=== PATIENT | male | born 1960 | race Caucasian/White ===

== ENCOUNTER 2025-07-09 13:25 | Outpatient (CLI) | payer BC, OTHER ==
--- NOTE | 2025-07-09 15:44 | RADIOLOGY REPORT ---
EXAM: CT CT LOWER EXTREMITY INDICATION: PRIMARY OSTEOARTHRITIS, LEFT KNEE TECHNIQUE: Axial images of left lower extremity from the hips to the ankle have been obtained along w ith coronal and sagittal reformatted images. All CT scans at this facility use dose modulation, itera tive reconstruction, and/or weight based dosing when appropriate to reduce radiation dose to as low a s reasonably achievable. COMPARISON: None FINDINGS: BONES: No CT evidence of an acute fracture or aggressive osseous lesion. severe anterior medial weigh t-bearing compartment joint space loss with a [id number] contact MUSCLES: No abnormal attenuation. JOINT SPACES: Small knee joint effusion TENDONS/LIGAMENTS: Intact. OTHER: None. IMPRESSION: 1. Successful CT surgical planning protocol. 2. Small knee joint effusion.
== END 2025-07-09 23:59 | disposition home or self-care (01) ==
LOC: RAD 13:25
PROVIDERS: ATTEND Orthopaedic Surgery
DX: M25.462 Effusion, left knee (principal); M17.12 Unilateral primary osteoarthritis, left knee
CPT/HCPCS: 73700

== ENCOUNTER 2025-08-06 08:42 | Inpatient (IN) | payer OTHER, BC ==
[2025-07-28 14:53] LABS: MEAN PLATELET VOLUME 8.4 FL (7.4-10.4); PRE OP HEMATOCRIT 48.3 % (42.0-52.0); PRE OP HEMOGLOBIN 16.3 g/dL (14.0-17.9); PRE OP PLATELET COUNT 186 X10'3 (140-440); PRE OP WHITE BLOOD COUNT 8.8 10'3 (4.8-10.8); RED CELL DISTRIBUTION WIDTH 13.2 % (11.5-14.5)
--- NOTE | 2025-07-28 15:07 | ELECTROCARDIOGRAPH REPORT ---
[facility] Test Date: 2025-07-28 Test Time: 15:05:34 Pat Name: STAR BROOKS Department: PRE/OP CARDIOLOGY Patient ID: [facility]-[id number] Room: Gender: M Store Operations Manager: SIMI : 1960 Requested By: VERÓNICA LOUIS Order Number: [id number] Reading MD: Dr. TIANA Perla Measurements Intervals [place] Rate: 51 P: 50 [place]: 128 QRS: 38 QRSD: 113 T: 43 QT: 468 QTc: 432 Interpretive Statements Sinus bradycardia Incomplete right bundle branch block Electronically Signed On 07-28-2025 18:47:[address] TIANA Perla Please click the below link to view image of tracing.
[2025-07-28 15:09] LABS: CREATININE 0.88 MG/DL (0.60-1.10); PRE OP ALT 8 U/L (30-65); PRE OP ANION GAP 11 (8-16); PRE OP AST 21 U/L (10-37); PRE OP BILIRUB, TOTAL 0.9 MG/DL (0.0-1.0); PRE OP GLUCOSE 106 MG/DL (70-104); PRE OP POTASSIUM 3.8 MMOL/L (3.4-5.1); PRE OP SODIUM 139 MMOL/L (135-145); TOTAL CARBON DIOXIDE 24.7 MMOL/L (24-32); eGFR 87 ML/MIN
[2025-08-06] VITALS (23 sets, daily range): BP systolic 98–154; BP diastolic 62–81; PULSE 39–56; RESP 8–16; TEMP 96.7–97.6; O2SAT 94–100
[~2025-08-06] VITALS: Ht 177.8 cm; Wt 95.3 kg
[2025-08-06] MEDS: ceFAZolin 2gm/dext,iso 50mL 50 ML IV ONE (05:30)
[2025-08-06] MEDS: tranexamic acid 1gm/0.7% sal. 100 ML IV ONE (05:30)
[2025-08-06] MEDS: ROPIVAcaine inj 200 MG, epiNEPHrine inj 0.6 MG, morphine 10mg/ml inj. 5 MG in normal sa... IU ONE (07:05)
[~2025-08-06 08:42] MED LIST: IBUP-1986 PO; TRAZ-251 PO; vancomycin 1,000mg inj ONE
[2025-08-06] MEDS: ringers solution, lacted 1,000 ML IV SCH ×2 (09:28→15:08)
[2025-08-06] MEDS: VANCOMYCIN/H2O 1.5g/300mL PB 300 ML IV ONE (09:29)
[2025-08-06] MEDS ORDERED: vancomycin 1,000mg inj ONE (11:06)
[2025-08-06] MEDS ORDERED: tetracaine 1% (10mg/ml) pres. free inj. ONE (11:18)
[2025-08-06] MEDS ORDERED: MIDAZolam 1mg/ml 10ml vial ONE (11:19)
[2025-08-06] MEDS ORDERED: fentaNYL/PF 50MCG/1 ML 2ML syringe ONE (11:19)
[2025-08-06] MEDS ORDERED: ROPIVAcaine 0.2% (10 MG/5 ML) BOLUS INJECTION ADDCANAL PRN (12:30)
[2025-08-06] MEDS ORDERED: hydrALAZINE 20mg/ml inj. IV PRN (12:30)
[2025-08-06] MEDS ORDERED: labetalol 20mg/4ml (5mg/ml) syringe IV PRN (12:30)
[2025-08-06] MEDS ORDERED: ondansetron/PF 4mg/2ml inj IV PRN ×2 (12:30→14:20)
[2025-08-06] MEDS ORDERED: HYDROmorphone/PF 0.2 MG/ML SYRINGE IV PRN ×2 (12:30)
[2025-08-06] MEDS ORDERED: ROPIVAcaine 0.5% (5mg/ml) 30ml vial ONE (14:17)
[2025-08-06] MEDS ORDERED: propofol inj 20 ML IV ONE ×2 (14:17)
[2025-08-06] MEDS ORDERED: magnesium hydroxide 30ml (MOM) UD suspension PO PRN (14:20)
[2025-08-06] MEDS ORDERED: PCA WASTE DOCUMENTATION 1 MG ML MC SCH (14:20)
[2025-08-06] MEDS ORDERED: HYDROmorphone inj. 0.5 MG/0.5 ML DISP.SYRIN IV PRN (14:20)
[2025-08-06] MEDS ORDERED: bisacodyl 10mg suppository rectal RC PRN (14:20)
[2025-08-06] MEDS: acetaminophen 1,000mg/100ml IV 100 ML IV ONE (14:32)
--- NOTE | 2025-08-06 14:32 | OPERATIVE REPORT ---
Operative Report Providers to ~ Date of Procedure: Aug 06, 2025 Pre-Operative Diagnosis: Severe degenerative joint disease left knee Post-Operative Diagnosis SAME as PRE-Op Procedure Performed Left total knee arthroplasty Press-Fit Surgeon: Elisa Eckert MD Party Host/Hostess Bruno Wilder MD Anesthesiologist: Mathieu Calderon Type of Anesthesia: Regional (I pack block adductor canal block), Spinal Findings: Severe grade 4 degenerative changes tricompartmental left knee Complications None Prosthetics\Implants used: Implants used to pew Press-Fit attune total joint knee system size seven left femur cementless size eight tibial base plate cementless size 38 patella Press- Fit size 7 mm tibial insert fixed bearing medial stabilize Estimated Blood Loss: 250 mL Specimen Removed: Degenerative bone meniscal and cruciate tissue Description of Procedure: Patient was taken to the operating room after I had obtained informed consent signed his left knee he was given prophylactic intravenous antibiotics once in the operating room he was given a spinal anesthetic and placed in the operating room table in the supine position his right leg was placed in an SCD device left leg was placed in a well-padded upper thigh tourniquet and then prepped and draped in usual sterile orthopaedic fashion surgical time-out was taken per protocol and the case was begun. Esmarch was used for exsanguination. And I M P knee stabilizing system was used. Anterior incision measured approximately 7-8 inches medial parapatellar approach was accomplished without difficulty the patella was inverted and found to have extensive osteophytes and areas of grade 4 degenerative changes and osteotomy using freehand technique was used and a patellar protector was used to protect the patella which was now subluxed laterally to expose the distal femur. The patient match cutting block was used on the distal femoral and proximal tibial cuts these were accomplished without difficulty protecting neurovascular structures with retractors at all times. Flexion-extension gaps were found to be equal and 7 mm four in one cutting block of the distal femur was now used including the chamfer accessory cut trial components fit blade snugly and a 7 mm liner gave us a stable knee throughout a full range of motion both in flexion- extension. Definitive implants were impacted into place after the tibia had been prepared for the keel. Good Press-Fit and solid bone was encountered. 7 mm medial congruent liner was placed in the knee without difficulty in the knee was found to be stable throughout a range of motion of the patella was Press-Fit into the under the surface of the patella and this tracked centrally without no thumbs technique throughout a full range of motion. Tourniquet was released hemostasis was controlled with electrocautery during this in the throughout the case. Proximally 2 L of antibiotic impregnated normal saline was used for pulsatile irrigation and 1 L of antiseptic solution was used for irrigation. Vistaseal was used to supplement hemostasis. No drains were placed. Closure was accomplished with 2. Ethibond interrupted subcutaneous tissue was closed with 2-0 Vicryl and the skin was closed with skin elsy and sealed with Dermabond skin glue sterile dressings were placed over this knee and held in position with op-site. Patient had good distal pulses and capillary refill to the foot. Patient was now placed in the hands of the anesthesiologist for the adductor canal block in the on IPAP block. He was then transferred to the recovery room in stable condition there were no apparent pe rioperative complications Counts repoted as correct: Yes VERÓNICA ECKERT MD Aug 06, 2025 14:32
[2025-08-06] MEDS ORDERED: morphine 4 MG/ML inj SYRINge IV PRN (14:33)
[2025-08-06] MEDS: morphine 4 MG/ML inj SYRINge IV PRN (14:36)
[2025-08-06] MEDS: ROPIVAcaine 0.2%/PF PUMP/bolus 545 ML ADDCANAL SCH (15:08)
--- NOTE | 2025-08-06 15:11 | RADIOLOGY REPORT ---
EXAM: DI KNEE LIMITED (AP/LAT) CLINICAL INDICATION: Postop LT. KNEE TECHNIQUE: DI KNEE LIMITED (AP/LAT) Comparison: CT CT LOWER EXTREMITY on DOS: 07/09/25 FINDINGS/IMPRESSION: Right Total knee arthroplasty.
[2025-08-06] MEDS ORDERED: ceFAZolin/D5W- 1GM premix 50 ML IV SCH (16:00)
[2025-08-06] MEDS: oxyCODONE IR 5mg (immed. release) tablet PO PRN ×2 (16:16→21:19)
[2025-08-06] MEDS: potassium Cl 20mEq in NS 1,000 ML IV SCH (16:46)
[2025-08-06] MEDS: tranexamic acid inj. 950 MG in normal saline 100ml IV soln 90.5 ML IV ONE (18:59)
[2025-08-06] MEDS ORDERED: ibuprofen tablet 400 MG TABLET PO PRN (19:05)
[2025-08-06] MEDS: ceFAZolin/D5W- 1GM premix 50 ML IV SCH (21:18)
[2025-08-06] MEDS: vancomycin/NS 1 GM ADD-VANTAGE 250 ML IV SCH (22:00)
[2025-08-07 02:00] VITALS: BP 142/71; PULSE 65; RESP 18; TEMP 98.1; O2SAT 99
[2025-08-07 06:00] VITALS: BP 137/85; PULSE 63; RESP 16; TEMP 97.9; O2SAT 98
[2025-08-07 10:00] VITALS: BP 135/80; PULSE 85; RESP 18; TEMP 97.8; O2SAT 99
[2025-08-07] MEDS ORDERED: oxyCODONE/APAP 5-325mg tablet PO PRN (13:35)
[2025-08-07 14:05] VITALS: RESP 16
--- NOTE | 2025-08-13 07:53 | DISCHARGE SUMMARY ---
Discharge Summary Ortho CC ~ Discharge Summary Discharge Date: Aug 07, 2025 Admission Diagnosis: Severe degenerative joint disease left knee Discharge Diagnosis\Comment: The same Operations\Procedures Left total knee arthroplasty Press-Fit Consultants: None Complications: None Condition on DC: Stable Discharge Summary: Patient was admitted on August 07 2025 for a left total knee arthroplasty. The surgery went as scheduled and without complications. Postoperatively this patient did quite well and by the 1st postoperative day he had passed his physical therapy treatment and was cleared to be discharged to home. His pain medicine was well controlled. Once he met discharge to home he was discharged and has follow up appointments in his set up with home care for wound care and home physical therapy. He has a follow up appointment to see me within the next two weeks Total Time Spent on D/C: Up to 30 Minutes Medications Home Meds: Home Medications Active Reported Trazodone HCl 50 Mg Tablet 1 Tab PO HS PRN 30 Days Ibuprofen 800 Mg Tablet 1 Tab PO BID PRN 30 Days Supervising Physician Supervising Physician: VERÓNICA Lin MD Aug 13, 2025 07:53
== END 2025-08-07 17:13 | disposition home health service (06) | DRG 470 ==
LOC: PAS IN 08:42 → ORTHO 4S 15:56
PROVIDERS: ADMIT Orthopaedic Surgery; ATTEND Orthopaedic Surgery
PROC: 3E0T3BZ Introduction of Anesthetic Agent into Peripheral Nerves and Plexi, Percutaneous Approach (ICD-10-PCS; 2025-08-06)
PROC: 0SRD0JA Replacement of Left Knee Joint with Synthetic Substitute, Uncemented, Open Approach (ICD-10-PCS; principal; 2025-08-06 11:11)
DX: M17.12 Unilateral primary osteoarthritis, left knee (principal)
CPT/HCPCS: 36415; 73560; 80053; 82948; 85025; 87081; 93005; 97116; 97161; 97530; A4215; A6253; A6258; A6446; A6449; A6454; A7000; C1776; C9250; G0378; J0131; J0169; J0690; J1171; J2250; J2270; J2274; J2704; J2795; J3010; J3373; J3375; J3480; J3490; J7120